=== PATIENT | male | born 1950 | race American Indian/Alaskan Native ===

== ENCOUNTER 2017-11-06 12:25 | Inpatient (IN) | payer MEDICARE ==
[2017-11-06] MEDS ORDERED: NACL 0.9% 500 ML 500 ML IV ONE (12:48)
[2017-11-06] MEDS ORDERED: TYLENOL ONE (13:03)
[2017-11-06] MEDS ORDERED: TYLENOL PO ONE (13:05)
[2017-11-06 13:10] LABS: Hematocrit 43.1 % (35.5-45.6); Hemoglobin 14.3 gm/dl (11.8-15.2); Mean Corpuscular HGB Conc 33 % (32-34); Mean Corpuscular Hemoglobin 30 pg (28-32); Mean Corpuscular Volume 91 fl (84-94); Red Blood Count 4.72 M/mm3 (3.65-5.03); Red Cell Distribution Width 15.5 % (13.2-15.2)
[2017-11-06 13:20] LABS: INR 1.03 (0.87-1.13)
[2017-11-06 13:25] LABS: Albumin 3.9 g/dL (3.9-5); Calcium 9.4 mg/dL (8.4-10.2)
[2017-11-06] MEDS ORDERED: LEVAQUIN 750MG/150ML 750 MG/150 ML BAG IV ONE (13:52)
[2017-11-06 14:02] LABS: Bacteria,Urine 1+ /HPF (Negative); Bilirubin,Urine NEG (Negative); Blood,Urine MOD (Negative); Color,Urine Amber (Yellow); Mucus,Urine FEW /HPF
[2017-11-06 14:03] LABS: WBC,Urine > 182.0 /HPF (0.0-6.0)
--- NOTE | 2017-11-06 14:04 | Emergency Department Report ---
ED General Adult HPI - General Chief complaint: Urogenital-Male Stated complaint: PROBLEMS URINATING Time Seen by Provider: 11/06/17 13:00 Source: patient Mode of arrival: Ambulatory Limitations: No Limitations - History of Present Illness Initial comments: Patient complains of dysuria 3 days along with a fever. Patient denies any nausea, vomiting, diarrhea as other complaints at this time. Patient denies chest pain, abdominal pain, headache. -: Gradual Radiation: non-radiation Severity scale (0 -10): 0 Improves with: none Worsens with: none Associated Symptoms: denies other symptoms Treatments Prior to Arrival: none - Related Data Previous Rx's Medication Instructions Recorded Last Taken Type Acetaminophen/Codeine [Tylenol #3] 1 tab PO Q6H PRN #12 tab 04/29/13 Unknown Rx Naproxen Sodium (Nf) [Anaprox DS] 550 mg PO BID PRN #10 tablet 04/29/13 Unknown Rx Allergies Allergy/AdvReac Type Severity Reaction Status Date / Time No Known Allergies Allergy Unverified 04/29/13 04:31 ED Review of Systems ROS: Stated complaint: PROBLEMS URINATING Other details as noted in HPI Constitutional: denies: chills, fever Eyes: denies: eye pain, eye discharge, vision change ENT: denies: ear pain, throat pain Respiratory: denies: cough, shortness of breath, wheezing Cardiovascular: denies: chest pain, palpitations Endocrine: no symptoms reported Gastrointestinal: denies: abdominal pain, nausea, diarrhea Genitourinary: dysuria. denies: urgency Musculoskeletal: denies: back pain, joint swelling, arthralgia Skin: denies: rash, lesions Neurological: denies: headache, weakness, paresthesias Psychiatric: denies: anxiety, depression Hematological/Lymphatic: denies: easy bleeding, easy bruising ED Past Medical Hx - Past Medical History Hx Hypertension: Yes - Surgical History Past Surgical History?: No - Social History Smoking Status: Never Smoker Substance Use Type: Alcohol - Medications Home Medications: Home Medications Medication Instructions Recorded Confirmed Last Taken Type Acetaminophen/Codeine [Tylenol #3] 1 tab PO Q6H PRN #12 tab 04/29/13 Unknown Rx Naproxen Sodium (Nf) [Anaprox DS] 550 mg PO BID PRN #10 tablet 04/29/13 Unknown Rx ED Physical Exam - General Limitations: No Limitations General appearance: alert, in no apparent distress - Head Head exam: Present: atraumatic, normocephalic - Eye Eye exam: Present: normal appearance - ENT ENT exam: Present: mucous membranes moist - Neck Neck exam: Present: normal inspection - Respiratory Respiratory exam: Present: normal lung sounds bilaterally. Absent: respiratory distress, wheezes, rales, rhonchi - Cardiovascular Cardiovascular Exam: Present: normal rhythm, tachycardia. Absent: systolic murmur, diastolic murmur, rubs, gallop - GI/Abdominal GI/Abdominal exam: Present: soft, normal bowel sounds. Absent: distended, tenderness - Rectal Rectal exam: Present: deferred - Extremities Exam Extremities exam: Present: normal inspection - Back Exam Back exam: Present: normal inspection - Neurological Exam Neurological exam: Present: alert, oriented X3 - Psychiatric Psychiatric exam: Present: normal affect, normal mood - Skin Skin exam: Present: warm, dry, intact, normal color. Absent: rash ED Course Vital Signs 11/06/17 11/06/17 12:45 13:40 Temperature 101 F H Pulse Rate 121 H Respiratory 19 20 Rate Blood Pressure 128/78 O2 Sat by Pulse 96 98 Oximetry ED Medical Decision Making - Lab Data Result diagrams: 11/06/17 12:54 11/06/17 12:54 - EKG Data -: EKG Interpreted by Me Rate: tachycardia - EKG Data Interpretation: other 11/06/17 14:01 EKG done at 1304 shows sinus tachycardia with regular 103 there are no acute changes that would suggest an ST elevation [place] Critical Care Time: Yes Critical care time in (mins) excluding proc time.: 45 Critical care attestation.: If time is entered above; I have spent that time in minutes in the direct care of this critically ill patient, excluding procedure time. ED Disposition Clinical Impression: Sepsis Disposition: OP ADMIT IP TO THIS HOSP Is pt being admited?: Yes Does the pt Need Aspirin: No Condition: Fair Referrals: PRIMARY CARE, [Primary Care Provider] - 3-5 Days Time of Disposition: 14:00
[2017-11-06 14:27] LABS: Eosinophils % (Manual) 0 % (0.0-4.3); RBC Morphology Normal; Total Cells Counted 100
[2017-11-06 14:28] LABS: Platelet Count 273 K/mm3 (140-440)
[2017-11-06] MEDS ORDERED: MOTRIN ONE (15:41)
[2017-11-06] MEDS ORDERED: MOTRIN PO ONE (15:46)
--- NOTE | 2017-11-06 16:31 | XRay Report ---
FINAL REPORT EXAM: XR CHEST 1V AP HISTORY: possible Sepsis TECHNIQUE: upright single view chest PRIORS: None. FINDINGS: Cardiac and mediastinal contours are unremarkable. No focal pulmonary infiltrate is identified. No pleural fluid collection seen. Pulmonary vasculature is unremarkable. IMPRESSION: Negative single-view chest
[2017-11-06] MEDS ORDERED: ZOFRAN IV PRN (23:16)
[2017-11-06] MEDS ORDERED: PHENERGAN PR PRN (23:16)
[2017-11-06] MEDS ORDERED: REGLAN IV PRN (23:16)
[2017-11-06] MEDS ORDERED: MORPHINE IV PRN (23:16)
[2017-11-06] MEDS ORDERED: SODIUM CHLORIDE FLUSH SYRINGE 10 ML IV PRN (23:16)
[2017-11-06] MEDS ORDERED: TYLENOL PO PRN (23:16)
--- NOTE | 2017-11-06 23:19 | Event Note ---
Date: 11/06/17 See dictated history and physical in the reports SIRS Urinary tract infection Hypertension
--- NOTE | 2017-11-07 00:11 | History and Physical Report ---
CHIEF COMPLAINT: 1. Difficulty urination for 3 days. 2. Fever. HISTORY OF PRESENT ILLNESS: A 67-year-old with a history of hypertension, comes in for dysuria of 3 days along with fever. No nausea, no vomiting. He has difficulty urinating. No previous urinary tract infections. No exacerbating or relieving factors. Feels weak. Also, having low grade fever. PAST MEDICAL HISTORY: Significant for hypertension. PAST SURGICAL HISTORY: None. SOCIAL HISTORY: Does not smoke. No alcohol, no recreational drugs. FAMILY HISTORY: Significant for hypertension. REVIEW OF SYSTEMS: Significant for fever, chills, and difficulty urinating. Otherwise, review of systems negative. CURRENT MEDICATIONS: Lisinopril. PHYSICAL EXAMINATION: GENERAL: Elderly male, cooperative during examination. VITAL SIGNS: Blood pressure is 122/69, temperature is 98 and 101.6 with pulse 101, sats are 98%. HEENT: Unremarkable. Pupils are equal and reactive. NECK: Supple, no lymphadenopathy, no thyromegaly. LUNGS: Clear to auscultation and percussion. Good air entry. CARDIOVASCULAR: S1, S2 heard. No gallop, no murmur, no rub. Apical impulse in left fifth intercostal space and midclavicular line. ABDOMEN: Soft and benign. No hepatosplenomegaly. No guarding, no rigidity. Hernial orifices are normal. EXTREMITIES: Good pedal pulses. No pedal edema. CENTRAL NERVOUS SYSTEM: Alert and oriented x 4, nonfocal exam. SKIN: Normal. LABORATORY DATA: Significant for white count of 20,800, H and H is normal. Sodium is 130 low, BUN and creatinine is 28 and 1.9. Lactic acid is normal. Urine WBCs more than 182,000. IMAGING DATA: Chest x-ray shows no acute findings. ASSESSMENT AND PLAN: 1. Systemic inflammatory response syndrome. The patient initiated on IV Rocephin and IV fluids. The patient had severe urinary tract infection. 2. Urinary tract infection, pending blood cultures and urine cultures. The patient initiated on IV Rocephin, which is the drug of choice for urinary tract infections. 3. Hyponatremia, IV normal saline for the time being. 4. Acute kidney injury. IV fluids for the time being. 5. Hypertension. Continue home antihypertensives. 6. Deep venous thrombosis prophylaxis, heparin 5000 q. 12 hours. JOB# [id number] EDITH/GOKUL
[2017-11-07] MEDS: NACL 0.9% 1000 ML 1,000 ML IV SCH ×2 (05:08→15:11)
[2017-11-07 05:09] LABS: Eosinophils % (Auto) 0.1 % (0.0-4.3); Hematocrit 41.7 % (35.5-45.6); Hemoglobin 13.7 gm/dl (11.8-15.2); Lymphocytes % (Auto) 5.7 % (13.4-35.0); Mean Corpuscular HGB Conc 33 % (32-34); Mean Corpuscular Hemoglobin 30 pg (28-32); Mean Corpuscular Volume 90 fl (84-94); Monocytes # (Auto) 1.8 K/mm3 (0.0-0.8); Monocytes % (Auto) 10.6 % (0.0-7.3); Platelet Count 289 K/mm3 (140-440); Red Blood Count 4.62 M/mm3 (3.65-5.03); Red Cell Distribution Width 15.2 % (13.2-15.2)
[2017-11-07 05:18] LABS: Alanine Aminotransferase 18 units/L (7-56); Albumin 3.5 g/dL (3.9-5); BUN/Creatinine Ratio 19; Blood Urea Nitrogen 27 mg/dL (9-20); Calcium 9.2 mg/dL (8.4-10.2); Hemolysis Index 14
[2017-11-07] MEDS: HEPARIN SUB-Q SCH ×2 (09:52→21:21)
[2017-11-07] MEDS: SODIUM CHLORIDE FLUSH SYRINGE 10 ML IV SCH ×2 (09:54→21:22)
[2017-11-07] MEDS ORDERED: ROCEPHIN/NS 2 GM/100 ML 2 GM/100 ML BAG IV SCH (10:00)
[2017-11-07] MEDS ORDERED: PEPCID IV SCH (10:00)
--- NOTE | 2017-11-07 10:20 | Progress Note ---
History Interval history: Sepsis. Pt meets criteria given the fever, leukocytosis. F/U blood and urine cx. UTI. Cont IV abx. F/U Cx ARF. Etiology secondary to TANG from sepsis +/- vasomotor nephropathy/ dehydration. Cont IVF hydration HTN. Cont home meds Hyponatremia. Repelete with NS Hospitalist Physical - Constitutional Vitals: Temp Pulse Resp BP Pulse Ox 98.8 F 77 18 135/78 97 11/07/17 08:00 11/07/17 08:00 11/07/17 08:00 11/07/17 08:00 11/07/17 08:00 Results - Labs CBC & Chem 7: 11/07/17 04:37 11/07/17 04:37 Labs: Laboratory Last Values WBC 16.7 K/mm3 (4.5-11.0) H 11/07/17 04:37 RBC 4.62 M/mm3 (3.65-5.03) 11/07/17 04:37 Hgb 13.7 gm/dl (11.8-15.2) 11/07/17 04:37 Hct 41.7 % (35.5-45.6) 11/07/17 04:37 MCV 90 fl (84-94) 11/07/17 04:37 MCH 30 pg (28-32) 11/07/17 04:37 MCHC 33 % (32-34) 11/07/17 04:37 RDW 15.2 % (13.2-15.2) 11/07/17 04:37 Plt Count 289 K/mm3 (140-440) 11/07/17 04:37 Lymph % (Auto) 5.7 % (13.4-35.0) L 11/07/17 04:37 Edgar % (Auto) 10.6 % (0.0-7.3) H 11/07/17 04:37 Eos % (Auto) 0.1 % (0.0-4.3) 11/07/17 04:37 Baso % (Auto) 0.0 % (0.0-1.8) 11/07/17 04:37 Lymph # 1.0 K/mm3 (1.2-5.4) L 11/07/17 04:37 Edgar # 1.8 K/mm3 (0.0-0.8) H 11/07/17 04:37 Eos # 0.0 K/mm3 (0.0-0.4) 11/07/17 04:37 Baso # 0.0 K/mm3 (0.0-0.1) 11/07/17 04:37 Add Manual Diff Complete 11/06/17 12:54 Total Counted 100 11/06/17 12:54 Seg Neutrophils % 83.6 % (40.0-70.0) H 11/07/17 04:37 Seg Neuts % (Manual) 88.0 % (40.0-70.0) H 11/06/17 12:54 Band Neutrophils % 0 % 11/06/17 12:54 Lymphocytes % (Manual) 4.0 % (13.4-35.0) L 11/06/17 12:54 Reactive Lymphs % (Man) 0 % 11/06/17 12:54 Monocytes % (Manual) 7.0 % (0.0-7.3) 11/06/17 12:54 Eosinophils % (Manual) 0 % (0.0-4.3) 11/06/17 12:54 Basophils % (Manual) 1.0 % (0.0-1.8) 11/06/17 12:54 Metamyelocytes % 0 % 11/06/17 12:54 Myelocytes % 0 % 11/06/17 12:54 Promyelocytes % 0 % 11/06/17 12:54 Blast Cells % 0 % 11/06/17 12:54 Nucleated RBC % Not Reportable 11/06/17 12:54 Seg Neutrophils # 13.9 K/mm3 (1.8-7.7) H 11/07/17 04:37 Seg Neutrophils # Man 18.3 K/mm3 (1.8-7.7) H 11/06/17 12:54 Band Neutrophils # 0.0 K/mm3 11/06/17 12:54 Lymphocytes # (Manual) 0.8 K/mm3 (1.2-5.4) L 11/06/17 12:54 Abs React Lymphs (Man) 0.0 K/mm3 11/06/17 12:54 Monocytes # (Manual) 1.5 K/mm3 (0.0-0.8) H 11/06/17 12:54 Eosinophils # (Manual) 0.0 K/mm3 (0.0-0.4) 11/06/17 12:54 Basophils # (Manual) 0.2 K/mm3 (0.0-0.1) H 11/06/17 12:54 Metamyelocytes # 0.0 K/mm3 11/06/17 12:54 Myelocytes # 0.0 K/mm3 11/06/17 12:54 Promyelocytes # 0.0 K/mm3 11/06/17 12:54 Blast Cells # 0.0 K/mm3 11/06/17 12:54 WBC Morphology Not Reportable 11/06/17 12:54 Hypersegmented Neuts Not Reportable 11/06/17 12:54 Hyposegmented Neuts Not Reportable 11/06/17 12:54 Hypogranular Neuts Not Reportable 11/06/17 12:54 Smudge Cells Not Reportable 11/06/17 12:54 Toxic Granulation Not Reportable 11/06/17 12:54 Toxic Vacuolation Not Reportable 11/06/17 12:54 Dohle Bodies Not Reportable 11/06/17 12:54 Pelger-Huet Anomaly Not Reportable 11/06/17 12:54 Stanton Rods Not Reportable 11/06/17 12:54 Platelet Estimate Not Reportable 11/06/17 12:54 Clumped Platelets Not Reportable 11/06/17 12:54 Plt Clumps, EDTA Not Reportable 11/06/17 12:54 Large Platelets Not Reportable 11/06/17 12:54 Giant Platelets Not Reportable 11/06/17 12:54 Platelet Satelliting Not Reportable 11/06/17 12:54 Plt Morphology Comment Not Reportable 11/06/17 12:54 RBC Morphology Normal 11/06/17 12:54 Dimorphic RBCs Not Reportable 11/06/17 12:54 Polychromasia Not Reportable 11/06/17 12:54 Hypochromasia Not Reportable 11/06/17 12:54 Poikilocytosis Not Reportable 11/06/17 12:54 Anisocytosis Not Reportable 11/06/17 12:54 Microcytosis Not Reportable 11/06/17 12:54 Macrocytosis Not Reportable 11/06/17 12:54 Spherocytes Not Reportable 11/06/17 12:54 Pappenheimer Bodies Not Reportable 11/06/17 12:54 Sickle Cells Not Reportable 11/06/17 12:54 Target Cells Not Reportable 11/06/17 12:54 Tear Drop Cells Not Reportable 11/06/17 12:54 Ovalocytes Not Reportable 11/06/17 12:54 Helmet Cells Not Reportable 11/06/17 12:54 [place] Bodies Not Reportable 11/06/17 12:54 Tyler Rings Not Reportable 11/06/17 12:54 [place] Cells Not Reportable 11/06/17 12:54 Bite Cells Not Reportable 11/06/17 12:54 Crenated Cell Not Reportable 11/06/17 12:54 Elliptocytes Not Reportable 11/06/17 12:54 Acanthocytes (Spur) Not Reportable 11/06/17 12:54 Rouleaux Not Reportable 11/06/17 12:54 Hemoglobin C Crystals Not Reportable 11/06/17 12:54 Schistocytes Not Reportable 11/06/17 12:54 Malaria parasites Not Reportable 11/06/17 12:54 Leonidas Bodies Not Reportable 11/06/17 12:54 Hem Pathologist Commnt No 11/06/17 12:54 PT 14.0 Sec. (12.2-14.9) 11/06/17 12:54 INR 1.03 (0.87-1.13) 11/06/17 12:54 VBG pH 7.448 (7.320-7.420) H 11/06/17 12:54 Sodium 134 mmol/L (137-145) L 11/07/17 04:37 Potassium 4.2 mmol/L (3.6-5.0) 11/07/17 04:37 Chloride 98.6 mmol/L (98-107) 11/07/17 04:37 Carbon Dioxide 23 mmol/L (22-30) 11/07/17 04:37 Anion Gap 17 mmol/L 11/07/17 04:37 BUN 27 mg/dL (9-20) H 11/07/17 04:37 Creatinine 1.4 mg/dL (0.8-1.5) 11/07/17 04:37 Estimated GFR > 60 ml/min 11/07/17 04:37 BUN/Creatinine Ratio 19 % 11/07/17 04:37 Glucose 102 mg/dL (75-100) H 11/07/17 04:37 Lactic Acid 1.30 mmol/L (0.7-2.0) 11/06/17 15:50 Calcium 9.2 mg/dL (8.4-10.2) 11/07/17 04:37 Total Bilirubin 0.70 mg/dL (0.1-1.2) 11/07/17 04:37 AST 21 units/L (5-40) 11/07/17 04:37 ALT 18 units/L (7-56) 11/07/17 04:37 Alkaline Phosphatase 51 units/L (35-129) 11/07/17 04:37 Total Protein 7.4 g/dL (6.3-8.2) 11/07/17 04:37 Albumin 3.5 g/dL (3.9-5) L 11/07/17 04:37 Albumin/Globulin Ratio 0.9 % 11/07/17 04:37 Urine Color [place] (Yellow) 11/06/17 13:29 Urine Turbidity Clear (Clear) 11/06/17 13:29 Urine pH 5.0 (5.0-7.0) 11/06/17 13:29 Ur Specific Dennard 1.024 (1.003-1.030) 11/06/17 13:29 Urine Protein 100 mg/dl mg/dL (Negative) 11/06/17 13:29 Urine Glucose (UA) Neg mg/dL (Negative) 11/06/17 13:29 Urine Ketones Tr mg/dL (Negative) 11/06/17 13:29 Urine Blood Mod (Negative) 11/06/17 13:29 Urine Nitrite Neg (Negative) 11/06/17 13:29 Urine Bilirubin Neg (Negative) 11/06/17 13:29 Urine Urobilinogen 2.0 mg/dL (<2.0) 11/06/17 13:29 Ur Leukocyte Esterase Lg (Negative) 11/06/17 13:29 Urine WBC (Auto) > 182.0 /HPF (0.0-6.0) H 11/06/17 13:29 Urine RBC (Auto) 10.0 /HPF (0.0-6.0) 11/06/17 13:29 U Epithel Cells (Auto) 1.0 /HPF (0-13.0) 11/06/17 13:29 Urine Bacteria (Auto) 1+ /HPF (Negative) 11/06/17 13:29 Urine Mucus Few /HPF 11/06/17 13:29 Urine Yeast (Budding) 1+ /HPF 11/06/17 13:29
[2017-11-07] MEDS ORDERED: AMBIEN PO PRN (10:27)
[2017-11-07] MEDS ORDERED: PNEUMOVAX 23 IM ONE (12:00)
[2017-11-07] MEDS ORDERED: PEPCID PO SCH (22:00)
[2017-11-07] MEDS ORDERED: MILK OF MAGNESIA PO PRN (22:47)
[2017-11-08] MEDS: NACL 0.9% 1000 ML 1,000 ML IV SCH (02:17)
[2017-11-08 05:23] LABS: Basophils % (Auto) 0.2 % (0.0-1.8); Eosinophils % (Auto) 0.1 % (0.0-4.3); Hematocrit 39.6 % (35.5-45.6); Lymphocytes # (Auto) 1.1 K/mm3 (1.2-5.4); Lymphocytes % (Auto) 9.6 % (13.4-35.0); Mean Corpuscular HGB Conc 33 % (32-34); Mean Corpuscular Hemoglobin 30 pg (28-32); Mean Corpuscular Volume 90 fl (84-94); Monocytes # (Auto) 1.4 K/mm3 (0.0-0.8); Monocytes % (Auto) 11.6 % (0.0-7.3); Platelet Count 308 K/mm3 (140-440); Red Blood Count 4.37 M/mm3 (3.65-5.03); Red Cell Distribution Width 15.1 % (13.2-15.2)
[2017-11-08 05:50] LABS: BUN/Creatinine Ratio 15; Blood Urea Nitrogen 17 mg/dL (9-20); Calcium 8.8 mg/dL (8.4-10.2); Hemolysis Index 1
--- NOTE | 2017-11-08 07:32 | Discharge Summary ---
Providers - Providers Date of Admission: 11/06/17 14:37 Date of discharge: 11/08/17 Attending physician: IZZY DELGADILLO 11/06/17 Consult to Case Management [CONS] Routine Services Needed at Discharge: Home Health Services Notified:: YES Phone number called:: [phone] Was contact made?: Yes If yes, spoke with:: Ursula Time called:: 08:20 Primary care physician: BODY FORMER Hospitalization Reason for admission: UTI Condition: Fair Hospital course: This is a 67-year-old male who presented through the emergency room with diagnosis of sepsis with UTI. Patient was also noted to have acute kidney injury secondary to sepsis/ATN resolved with IV fluid hydration. Patient had initial leukocytosis of 20.8 that returned to near normal range of 11.8 and a creatinine of 1.9 that returned toward normal range 1.1. Patient received IV antibiotics of Rocephin daily. Blood cultures were found to be negative. Patient will be discharged home with by mouth antibiotics and his follow-up with his primary care physician. Dedicated discharge time 34 minutes. Disposition: DC- TO HOME OR SELFCARE Time spent for discharge: 34 - Discharge Diagnoses (1) UTI (urinary tract infection) Status: Acute (2) Sepsis Status: Acute Core Measure Documentation - Palliative Care Palliative Care/ Comfort Measures: Not Applicable - Core Measures Any of the following diagnoses?: none Exam - Constitutional Vitals: Temp Pulse Resp BP Pulse Ox 98.5 F 92 H 18 108/56 96 11/08/17 02:00 11/08/17 02:00 11/08/17 02:00 11/08/17 02:00 11/08/17 02:00 General appearance: Present: no acute distress, well-nourished - EENT Eyes: Present: PERRL ENT: hearing intact, clear oral mucosa - Neck Neck: Present: supple, normal ROM - Respiratory Respiratory effort: normal Respiratory: bilateral: CTA - Cardiovascular Heart Sounds: Present: S1 & S2. Absent: rub, click - Extremities Extremities: pulses symmetrical, No edema Peripheral Pulses: within normal limits - Abdominal General gastrointestinal: Present: soft, non-tender, non-distended, normal bowel sounds Male genitourinary: Present: normal - Integumentary Integumentary: Present: clear, warm, dry - Musculoskeletal Musculoskeletal: gait normal, strength equal bilaterally - Psychiatric Psychiatric: appropriate mood/affect, intact judgment & insight - Neurologic Neurologic: CNII-XII intact, moves all extremities Plan Activity: no restrictions Weight Bearing Status: Full Weight Bearing Diet: regular Follow up with: PRIMARY CARE, [Primary Care Provider] - 3-5 Days Prescriptions: Allopurinol 300 mg PO QDAY #10 tablet Levofloxacin [Levaquin TAB] 500 mg PO QDAY #7 tablet Lisinopril [Zestril] 20 mg PO QDAY #30 tablet
[2017-11-08 08:38] VITALS: BP 150/100
== END 2017-11-08 10:00 | disposition home or self-care (01) | DRG 871 ==
LOC: ED 12:25 → 2B-ACE 14:37
PROVIDERS: ADMIT Internal Medicine; ATTEND Hospitalist
PROC: 3E0234Z Introduction of Serum, Toxoid and Vaccine into Muscle, Percutaneous Approach (ICD-10-PCS; principal; 2017-11-07)
DX: A41.9 Sepsis, unspecified organism (principal); N17.0 Acute kidney failure with tubular necrosis; N39.0 Urinary tract infection, site not specified; E87.1 Hypo-osmolality and hyponatremia; I10 Essential (primary) hypertension; Z23 Encounter for immunization
CPT/HCPCS: 36415; 71045; 80048; 80053; 81001; 82140; 82805; 85007; 85025; 85610; 87040; 87076; 87086; 87186; 90732; 93005; 93010; J0696; J1644; J1956; J7030; J7040